=== PATIENT | male | born 2000 | race Caucasian/White ===

== ENCOUNTER 2023-12-02 01:01 | Emergency (ER) | payer OTHER ==
[2023-12-02 02:04] LABS: Bacteria/HPF None Seen HPF (None Seen); Bilirubin Negative (Negative); Blood, Urine Negative (Negative); CAUTI Indications for Culture Dysuria,urgency,freq; Clarity Clear (Clear); Glucose, Urine (Dipstick) Normal (Negative); Ketone, Urine Negative (Negative); Leukocyte Negative Leu/uL (Negative); Nitrite Negative (Negative); Protein, Urine (Dipstick) 10 mg/dL (Neg-Trace); RBC/HPF 0-3 HPF (0-3); Specific Gravity, Urine 1.027 (1.002-1.036); Squamous Epithelial 0-3 HPF (0-3); WBC/HPF 0-3 HPF (0-3); pH, Urine 6.5 (5.0-9.0)
[2023-12-02 02:06] LABS: Urine Culture Reflex No No
== END 2023-12-02 04:16 | disposition home or self-care (01) ==
LOC: ERS 01:01
DX: N50.3 Cyst of epididymis (principal)
CPT/HCPCS: 76870; 81001; 93976